=== PATIENT | female | born 1995 | race Caucasian/White ===

== ENCOUNTER 2018-02-24 18:23 | Outpatient (CLI) | payer OTHER ==
[2018-02-24 18:41] VITALS: BP 122/70; PULSE 97; RESP 16; TEMP 98.3
--- NOTE | 2018-02-26 07:37 | P.MSEPDOC ---
Presenting Problems - Arrival Data Date of Arrival on Unit: 02/24/18 Time of Arrival on Unit: 18:20 Mode of Transport: Ambulatory - Complaint OB-Reason for Admission/Chief Complaint: Other Comment: Pt presented to hospital with flank pain and SOB, Dr Rodriguez called with information and stated to get patients vitals and heart tones Medical History - Information : 2 Para: 0 Term: 0 : 0 Abortions: Spontaneous or Elective: 1 Number of Living Children: 0 - Gestational Age Gestational Age by ELDER (wks/days): 27 Weeks and 0 Days Review of Systems - Review of Systems Constitutional: No problems Breast: No problems ENT: Cough Cardiovascular: No problems Respiratory: ELA Gastrointestinal: No problems Genitourinary: No problems Musculoskeletal: No problems Neurological: Dizziness Skin: No problems Comment: Pulse ox 98%, breathing easy, lung sounds clear bilaterally, pt laughing and talking with ease Vital Signs - Temperature Temperature: 98.3 F Temperature Source: Oral - Pulse Pulse Oximetery Pulse Rate: 97 Pulse Assessment Method: Automatic Cuff - Respirations Respiratory Rate: 16 Oxygen Delivery Method: Room Air O2 Sat by Pulse Oximetry: 98 - Blood Pressure Right Arm Blood Pressure: 122/70 Blood Pressure Mean: 87 Blood Pressure Source: Automatic Cuff Medical Screen Scoring (Pre) - Cervical Exam Dilation: Exam Deferred Effacement: Exam Deferred - Uterine Contractions Frequency: N/A Duration: N/A Intensity: N/A - Maternal Vital Signs Maternal Temperature: N/A Maternal Blood Pressure: N/A Signs of Preeclampsia: N/A Maternal Respirations: N/A - Pain Assessment Pain Location and Character: Right Pain Scale Used: Numeric (1 - 10) Pain Intensity: 6 Pain Description: *Acute, Sharp Pain Radiation Location: none Pain Frequency: Intermittent Pain Duration: 2 Pain Duration Units: Days Pain Behavior: None Exhibited Pain Aggravating Factors: Breathing, Coughing Non-Pharmacological Interventions: Darkened Room - Maternal Trauma Maternal Trauma: N/A - Assessment Baseline FHR: 145 Heart Rate - NICHD Category: Category I (Normal) = 0 Position: N/A Station: N/A - Total Score Total Score (Pre): 0 - Level of Risk Level of Risk: Low (0-5) Physician Notification (Pre) - Physician Notified Physician Notified Date: 02/24/18 Physician Notified Time: 16:35 Physician/Practitioner Notifed:: Dr Rodriguez Spoke With: Dr Rodriguez New Order Received: Yes - Notification Comment Comment: do vital signs and monitoring and have patient get examined in the ER Disposition - Disposition OB Disposition: Transfer to other dept./facility Transferred to:: ER Discharge Date: 02/24/18 Discharge Time: 18:50 I agree with the RN Medical Screening Exam: Yes Risk & Benefit of care provided described in d/c instruction: Yes Diagnosis: SHORTNESS OF BREATH
== END 2018-02-24 18:51 | disposition home or self-care (01) ==
LOC: FBPOP 18:23
PROVIDERS: ATTEND Obstetrics & Gynecology
DX: O99.513 Diseases of the respiratory system complicating pregnancy, third trimester (principal); R06.02 Shortness of breath; Z3A.27 27 weeks gestation of pregnancy
CPT/HCPCS: 99213

== ENCOUNTER 2018-04-22 14:52 | Outpatient (CLI) | payer OTHER ==
[2018-04-22 15:37] VITALS: BP 114/63; PULSE 88; RESP 18; TEMP 98
--- NOTE | 2018-04-25 08:39 | P.MSEPDOC ---
Presenting Problems - Arrival Data Date of Arrival on Unit: 04/22/18 Time of Arrival on Unit: 15:00 Mode of Transport: Ambulatory - Complaint Comment: "weird feeling in the abdomen" , nausea, hot flashes Medical History - Information : 1 Para: 0 Term: 0 : 0 Abortions: Spontaneous or Elective: 0 Number of Living Children: 0 - Gestational Age Gestational Age by ELDER (wks/days): 35 Weeks and 2 Days - History Comment: DOM - followd by physican at [facility] Review of Systems - Review of Systems Constitutional: No problems Breast: No problems ENT: No problems Cardiovascular: No problems Respiratory: No problems Gastrointestinal: No problems Genitourinary: No problems Musculoskeletal: No problems Neurological: No problems Skin: No problems Vital Signs - Temperature Temperature: 98.0 F Temperature Source: Temporal Artery Scan - Pulse Right Sitting Brachial Pulse Rate: 88 Pulse Assessment Method: Automatic Cuff - Respirations Respiratory Rate: 18 Oxygen Delivery Method: Room Air O2 Sat by Pulse Oximetry: 98 - Blood Pressure Right Arm Sitting Blood Pressure: 114/63 Blood Pressure Mean: 80 Blood Pressure Source: Automatic Cuff Medical Screen Scoring (Pre) - Cervical Exam Dilation: 1-3 cm = 1 - Uterine Contractions Frequency: > 5 minutes apart = 1 Duration: > 40 seconds = 2 - Maternal Vital Signs Maternal Temperature: N/A Maternal Blood Pressure: N/A Signs of Preeclampsia: N/A Maternal Respirations: N/A - Pain Assessment Pain Scale Used: Numeric (1 - 10) Pain Intensity: 0 Pain Management Goal: 3 - Maternal Trauma Maternal Trauma: N/A - Assessment Baseline FHR: 135 Heart Rate - NICHD Category: Category I (Normal) = 0 NST: Reactive Position: N/A Station: N/A - Total Score Total Score (Pre): 4 - Level of Risk Level of Risk: Low (0-5) Physician Notification (Pre) - Physician Notified Physician Notified Date: 04/22/18 Physician Notified Time: 15:30 Physician/Practitioner Notifed:: Dr Ken Spoke With: Dr Ken New Order Received: Yes - Notification Comment Comment: ok to dc home. Follow up with pt's own physician as scheduled. pt encouraged to rest and increase po fluids. Disposition - Disposition OB Disposition: Discharge to home Discharge Date: 04/22/18 Discharge Time: 15:37 I agree with the RN Medical Screening Exam: Yes Risk & Benefit of care provided described in d/c instruction: Yes Diagnosis: FALSE LABOR, UNSPECIFIED
== END 2018-04-22 15:38 | disposition home or self-care (01) ==
LOC: FBPOP 14:52
PROVIDERS: ATTEND Obstetrics & Gynecology
DX: O47.03 False labor before 37 completed weeks of gestation, third trimester (principal); Z3A.35 35 weeks gestation of pregnancy
CPT/HCPCS: 59025; G0463; 99213